=== PATIENT | male | born 1950 | race Caucasian/White ===

== ENCOUNTER 2017-04-11 12:21 | Day surgery (SDC) | payer OTHER ==
[~2017-04-11] VITALS: Ht 177.8 cm; Wt 90.5 kg
[~2017-04-11 12:21] MED LIST: ALBU90OI6 INH; ASPI325EC PO; FENO145 PO; FOLI1 PO; FURO40 PO; GLIM4 PO; HYDACE5 PO; LISI5 PO; LOSA50 PO; METF500 PO; ONDA4ODT MM; POTA10T PO; PRAV20 PO; SILD50TA PO; TRADJENTA PO; TRADJENTA5 MG PO
[2017-04-11] MEDS ORDERED: PRAV20 PO (12:38)
[2017-04-11] MEDS ORDERED: JARDIANCE25 MG (12:39)
[2017-04-11] MEDS ORDERED: Ecotrin325 MG (12:40)
== END 2017-04-11 14:17 | disposition home or self-care (01) ==
LOC: ORSCSDS 12:21
PROVIDERS: Internal Medicine Gastroenterology
PROC: 0DJD8ZZ Inspection of Lower Intestinal Tract, Via Natural or Artificial Opening Endoscopic (ICD-10-PCS; principal; 2017-04-11 13:30)
DX: Z12.11 Encounter for screening for malignant neoplasm of colon (principal); K64.8 Other hemorrhoids; E11.9 Type 2 diabetes mellitus without complications; I10 Essential (primary) hypertension; Z79.899 Other long term (current) drug therapy
CPT/HCPCS: 82947; J2250; J7120